=== PATIENT | female | born 2000 | race Two or more races ===

== ENCOUNTER 2024-03-04 00:13 | Emergency (ER) | payer OTHER ==
[~2024-03-04] VITALS: Ht 167.6 cm; Wt 63.5 kg
[2024-03-04 01:49] LABS: HEMATOCRIT 35.5 % (36.0-45.00); MEAN CELL VOLUME 83.6 fL (80.00-100.00); MEAN CORPUSCULAR HEMOGLOBIN 28.3 pg (27.00-32.0); MEAN CORPUSCULAR HGB CONC 33.8 g/dl (32.0-36.0); PLATELET COUNT 326 K/uL (150-450); RED BLOOD COUNT 4.25 M/uL (4.00-6.00); RED CELL DISTRIBUTION WIDTH 16.3 % (11.5-14.5)
[2024-03-04 02:05] LABS: URINE APPEARANCE Cloudy; URINE BILIRRUBIN Negative (NEGATIVE); URINE BLOOD Large; URINE COLOR Yellow; URINE GLUCOSE Negative (NEGATIVE); URINE KETONE Negative (NEGATIVE); URINE LEUKOCYTE Trace; URINE NITRATE Negative; URINE PROTEIN Negative (NEGATIVE); URINE UROBILINOGEN 0.2 E.U./dl
[2024-03-04 02:09] LABS: URINE BACTERIA 154.9 uL (0.0-1933); URINE EPITHELIAL CELLS 10.3 uL (0.0-38.8); URINE RBC 622.5 uL (0.0-20.8); URINE WBC 15.4 uL (0.0-23.2)
[2024-03-04 02:12] LABS: INR 1.05; PARTIAL THROMBOPLASTIN TIME 29.9 SECONDS (22.0-34.0); PROTHROMBIN TIME 11.4 SECONDS (9.0-11.5)
[2024-03-04 02:28] LABS: CALCIUM 9.3 mg/dL (8.5-10.1); CREATININE SERUM 0.71 mg/dL (0.55-1.02); GFR 101.13; POTASSIUM 3.55 mEq/L (3.5-5.1)
== END 2024-03-04 05:49 ==
LOC: ER 00:14
PROVIDERS: General Practice
DX: O20.8 Other hemorrhage in early pregnancy (principal); Z3A.01 Less than 8 weeks gestation of pregnancy

== ENCOUNTER 2024-03-13 11:41 | Inpatient (IN) | payer OTHER ==
[~2024-03-13] VITALS: Ht 167.6 cm; Wt 63.5 kg
[2024-03-13 12:57] LABS: HEMATOCRIT 29.2 % (36.0-45.00); HEMOGLOBIN 9.7 g/dL (12.0-15.00); MEAN CELL VOLUME 84.7 fL (80.00-100.00); MEAN CORPUSCULAR HEMOGLOBIN 28.1 pg (27.00-32.0); MEAN CORPUSCULAR HGB CONC 33.2 g/dl (32.0-36.0); PLATELET COUNT 296 K/uL (150-450); RED BLOOD COUNT 3.44 M/uL (4.00-6.00); RED CELL DISTRIBUTION WIDTH 15.8 % (11.5-14.5)
[2024-03-13 13:14] LABS: INR 1.11; PARTIAL THROMBOPLASTIN TIME 22.7 SECONDS (22.0-34.0)
[2024-03-13 13:39] LABS: ALBUMIN 3.3 gm/dL (3.4-5.0); BILIRUBIN TOTAL 0.33 mg/dL (0.3-1.2); CALCIUM 8.7 mg/dL (8.5-10.1); CREATININE SERUM 0.68 mg/dL (0.55-1.02); GFR 106.3; GLOBULINA 3.4 G/DL (2.4-3.5); POTASSIUM 3.72 mEq/L (3.5-5.1); TOTAL PROTEIN 6.7 gm/dL (6.4-8.2)
[2024-03-13] MEDS ORDERED: POVIDONE-IODINE 118 ML BOTT TOP ONE (16:15)
[2024-03-13] MEDS ORDERED: SUGAMMADEX SODIUM 200 MG/2 ML VIAL IV ONE (17:00)
[2024-03-13] MEDS ORDERED: RINGERS SOLUTION,LACTATED 1,000 ML IV SCH (17:00)
[2024-03-13] MEDS ORDERED: MORPHINE SULFATE 4 MG/ML CARTRIDGE IV PRN (17:00)
[2024-03-13] MEDS ORDERED: ONDANSETRON HCL 2 MG/ML VIAL IV PRN (17:00)
[2024-03-13] MEDS ORDERED: FAMOTIDINE/PF 20 MG/2 ML VIAL IV SCH (17:18)
[2024-03-13] MEDS ORDERED: MORPHINE SULFATE 4 MG/ML VIAL IV ONE (17:25)
[2024-03-13] MEDS ORDERED: DOXYCYCLINE HYCLATE 100 MG CAPSULE PO ONE (17:30)
[2024-03-13 17:53] LABS: HEMATOCRIT 25.3 % (36.0-45.00); MEAN CELL VOLUME 83.3 fL (80.00-100.00); MEAN CORPUSCULAR HGB CONC 32.9 g/dl (32.0-36.0); PLATELET COUNT 271 K/uL (150-450); RED BLOOD COUNT 3.04 M/uL (4.00-6.00)
[2024-03-13 17:54] LABS: HEMOGLOBIN 8.3 g/dL (12.0-15.00); MEAN CORPUSCULAR HEMOGLOBIN 27.3 pg (27.00-32.0)
[2024-03-13] MEDS ORDERED: KETOROLAC TROMETHAMINE 30 MG VIAL IV SCH (18:00)
[2024-03-13 20:15] VITALS: BP 90/55
[2024-03-13 20:57] VITALS: O2SAT 100
[2024-03-14 00:54] VITALS: BP 100/58
[2024-03-14 06:11] VITALS: BP 111/70
[2024-03-14 07:46] VITALS: BP 93/55
[2024-03-14] MEDS ORDERED: ACETAMINOPHEN 500 MG GEL..CAP PO SCH (12:28)
[2024-03-14] MEDS ORDERED: IBUprofen 800 MG TABLET PO PRN (12:30)
[2024-03-14 15:49] VITALS: BP 106/62
[2024-03-14 23:59] VITALS: BP 104/66
[2024-03-15 03:41] LABS: HEMATOCRIT 26.7 % (36.0-45.00); HEMOGLOBIN 9.3 g/dL (12.0-15.00); MEAN CELL VOLUME 84.9 fL (80.00-100.00); MEAN CORPUSCULAR HEMOGLOBIN 29.4 pg (27.00-32.0); MEAN CORPUSCULAR HGB CONC 34.6 g/dl (32.0-36.0); PLATELET COUNT 203 K/uL (150-450); RED BLOOD COUNT 3.15 M/uL (4.00-6.00); RED CELL DISTRIBUTION WIDTH 15.7 % (11.5-14.5)
[2024-03-15 08:38] VITALS: BP 91/60
== END 2024-03-15 13:49 | disposition home or self-care (01) | DRG 770 ==
LOC: ER 11:41 → SEC-K 14:40 → OB/GYN 14:40 → O/R 17:48 → OB/GYN 18:08
PROVIDERS: ADMIT Obstetrics & Gynecology; ATTEND Obstetrics & Gynecology
PROC: 10D17ZZ Extraction of Products of Conception, Retained, Via Natural or Artificial Opening (ICD-10-PCS; principal; 2024-03-13 16:30)
PROC: 30233N1 Transfusion of Nonautologous Red Blood Cells into Peripheral Vein, Percutaneous Approach (ICD-10-PCS; 2024-03-14)
DX: O03.4 Incomplete spontaneous abortion without complication (principal); O03.1 Delayed or excessive hemorrhage following incomplete spontaneous abortion; D50.0 Iron deficiency anemia secondary to blood loss (chronic); Z20.822 Contact with and (suspected) exposure to COVID-19